=== PATIENT | male | born 1990 | race Caucasian/White ===

== ENCOUNTER 2021-09-12 17:27 | Emergency (ER) | payer MEDICAID ==
[~2021-09-12] VITALS: Ht 172.7 cm; Wt 65.9 kg
[~2021-09-12 17:27] MED LIST: NO HOME MEDS
[2021-09-12] MEDS ORDERED: bacitracin 15gm ointment TP ONE (18:05)
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
[2021-09-12] MEDS ORDERED: CEPH-585 PO (19:27)
[2021-09-12] MEDS ORDERED: acetaminophen 325mg tablet PO ONE (19:30)
[2021-09-12] MEDS: TETanus/Pertussis (Acell)/Diphther VAC/PF (Tdap-Adult) 0.5ml syringe IMVAC ONE ×2 (19:34→19:42)
--- NOTE | 2021-09-12 19:38 | NUR ---
pt refused tetanus after scanning the medication. "i dont want it"
[2021-09-12 20:01] VITALS: BP 136/78
== END 2021-09-12 20:03 ==
LOC: ER 17:28
DX: S91.312A Laceration without foreign body, left foot, initial encounter (principal); S06.0X0A Concussion without loss of consciousness, initial encounter; S60.512A Abrasion of left hand, initial encounter; S60.511A Abrasion of right hand, initial encounter; S80.812A Abrasion, left lower leg, initial encounter; S80.811A Abrasion, right lower leg, initial encounter; F10.920 Alcohol use, unspecified with intoxication, uncomplicated; V49.3XXA Car occupant (driver) (passenger) injured in unspecified nontraffic accident, initial encounter; Y93.89 Activity, other specified; Y92.89 Other specified places as the place of occurrence of the external cause; Y99.8 Other external cause status
CPT/HCPCS: 70450; 73630; 90715; 99284